=== PATIENT | male | born 1970 | race Caucasian/White ===

== ENCOUNTER 2019-11-07 10:03 | Day surgery (SDC) | payer OTHER ==
[~2019-11-07 10:03] MED LIST: BUPIVACAINE 0.25% PF 30 ML VIAL ONE; EPINEPHrine 1 MG/ML AMP ONE
[2019-11-07] MEDS ORDERED: cefTRIAXone 2 GM VIAL ONE (10:08)
[2019-11-07] MEDS ORDERED: LACTATED RINGERS 1,000 ML IV ONE (10:15)
--- NOTE | 2019-11-07 10:21 | ANESTHESIA ---
Pre-Anesthesia VS, & Labs - Diagnosis right rotator cuff tear, biceps tendonitis, AC joint arthritis - Procedure Right shoulder arthroscopy, rotator cuff repair, open distal clavicle excision, biceps tenodesis Height 6 ft 6 in Weight (kg) 104.33 kg - NPO >8 hours Home Medications and Allergies Home Medications: Ambulatory Orders Oxybutynin Chloride [Ditropan Xl] 10 mg PO 11/06/19 Sertraline [Zoloft] 50 mg PO DAILY 11/06/19 Zolpidem Tartrate [Zolpidem Tartrate ER] 12.5 mg PO 11/06/19 Oxybutynin Chloride [Ditropan Xl] 10 mg PO 11/06/19 Sertraline [Zoloft] 50 mg PO DAILY 11/06/19 Zolpidem Tartrate [Zolpidem Tartrate ER] 12.5 mg PO 11/06/19 Allergies/Adverse Reactions: Allergies Allergy/AdvReac Type Severity Reaction Status Date / Time No Known Drug Allergies Allergy Verified 11/06/19 12:38 Anes History & Medical History - Anesthetic History Anesthesia Complications: reports: No previous complications - Medical History Cardiovascular: reports: Hypertension Pulmonary: reports: None Gastrointestinal: reports: None Urinary: reports: None Musculoskeletal: reports: Other Endocrine/Autoimmune: reports: None Skin: reports: None - Surgical History Orthopedic: Arthroscopic surgery, Other Exam General: Alert Dental: WNL Mouth Opening: Greater than 4 Fingerbreadths Neck Mobility: Normal Thyromental Distance: greater than 6 cm Respiratory: Lungs clear Cardiovascular: Regular rate, Normal S1, Normal S2 Plan Anesthesia Type: General, Interscalene Block Consent for Procedure(s) Verified and Reviewed: Yes Code Status: Attempt Resuscitation ASA classification: 2-Mild systemic disease Is this case an emergency?: No
[2019-11-07] MEDS ORDERED: ROCURONIUM 50 MG/5 ML VIAL IVP ONE (11:00)
[2019-11-07] MEDS ORDERED: KETOROLAC 30 MG/ML VIAL IVP ONE (11:00)
[2019-11-07] MEDS ORDERED: MIDAZOLAM 2 MG/2 ML VIAL IVP ONE (11:00)
[2019-11-07] MEDS ORDERED: ONDANSETRON 4 MG/2 ML VIAL IVP ONE (11:00)
[2019-11-07] MEDS ORDERED: PROPOFOL 200 MG/20 ML VIAL IVP ONE (11:00)
[2019-11-07] MEDS ORDERED: fentaNYL 100 MCG/2 ML VIAL IVP ONE (11:00)
[2019-11-07] MEDS ORDERED: DEXAMETHASONE 4 MG/ML VIAL IVP ONE (11:00)
[2019-11-07] MEDS ORDERED: ACETAMINOPHEN 1,000 MG/100 ML 100 ML IV ONE (11:00)
[2019-11-07] MEDS ORDERED: LIDOCAINE-MPF 2% 5 ML VIAL IM ONE (11:00)
--- NOTE | 2019-11-07 11:28 | ANESTHESIA PROCEDURE NOTE ---
Diagnosis: shoulder pain, shoulder arthroscopy for RCR Procedure: Interscalene Block, right Consent for Procedure(s) Verified and Reviewed: Yes Height and Weight: Height 6 ft 6 in Weight (kg) 108.3 kg Vital Signs: Temp Pulse Resp BP Pulse Ox 36.8 C 64 16 137/92 H 99 11/07/19 10:16 11/07/19 10:16 11/07/19 10:16 11/07/19 10:16 11/07/19 10:16 Allergies No Known Drug Allergies Allergy (Verified 11/07/19 10:27) ASA classification: 2-Mild systemic disease Is this case an emergency?: No Anes. Monitoring and Equipment: Non-invasive BP, Pulse oximetery, Sterile prep and drape Anes. Procedure Start Time: 11:52 Anes. Procedure Stop Time: 11:57 Procedure Notes: T.O with RN, consent signed. Versed 2mg and Fentanyl 100mcg given by me, O2 2l NC on. Choraprep to site, ultrasound view fair, plexus not easily visualized but identified. Bupivicane 5% with epinephrine 100 mcg and 8mg Decadron injected in 5cc increments to total 30cc negative aspiration of blood between. Patient tolerated well, to OR. No adverse effects or parathesias.
[2019-11-07] MEDS ORDERED: BUPIVACAINE 0.25% PF 30 ML VIAL SUBQ ONE (11:41)
[2019-11-07] MEDS ORDERED: ONDANSETRON 4 MG/2 ML VIAL IVP PRN (14:46)
[2019-11-07] MEDS ORDERED: oxyCODONE 5 MG TABLET PO PRN (14:46)
--- NOTE | 2019-11-07 14:58 | OPERATIVE REPORT ---
Operative Report - Other Other Information/Narrative: Date of Surgery: 07 November 2019 Pre-Op Diagnosis: Right shoulder subscapularis tear, supraspinatus tear, biceps tendinitis, SLAP tear, AC joint arthritis Procedure: Right shoulder arthroscopic subscapularis repair, supraspinatus debridement, SLAP debridement, subacromial decompression. Open biceps tenodesis, open distal clavicle excision Postop Diagnosis: Same Primary Surgeon: Jesus Cordova Secondary Surgeon: Joshua Pryor Complications: None EBL: 50 cc IMPLANTS: Arthrex 3.9 mm knotless corkscrew. Arthrex knotless fiber tack POSTOPERATIVE PLAN: 0-2 weeks-Sling at all times. Pendulum exercises 5 times per day. 2-6 weeks-Passive and active range of motion. No external rotation beyond 15 degrees. Forward flexion to 120. Abduction to 90. No active flexion of the elbow. 6-12 weeks-Gradually increase strengthening focusing on rotator cuff and scapular stabilizers per protocol. Increase external rotation by 15 degrees/week 12 weeks -strengthening of subscapularis permissible 16 weeks and beyond-Introduce dynamic activities. EXAMINATION UNDER ANESTHESIA: ROM: Full Anterior load and shift: Normal Posterior load and shift: Grade 1 Inferior sulcus: Normal ARTHROSCOPIC FINDINGS: Rotator interval: Normal Biceps tendon & SLAP: Unstable SLAP tear extending posteriorly. Biceps tenodesis was performed Subscapularis: Tear of the leading edge which was repaired with a corkscrew Rotator Cuff: Supraspinatus showed degenerative fraying at the insertion on the articular side. 25% or less of the insertion was visible from the articular side. There was no bursal sided tear. The degenerative fraying was debrided on the articular side. Infraspinatus showed a normal insertion and bare spot HAGL: Normal Labrum: Normal Glenoid Cartilage: Normal Humeral Head Cartilage: Normal INDICATION FOR SURGERY: 49-year-old male who played high-level volleyball in college and recreational sports since then. He was doing a volleyball serve months ago and sustained an injury to his right shoulder. Nonoperative managment failed to resolve symptoms. The risks, benefits, and alternatives were discussed. Risks included pain, bleeding, infection, damage to nearby structures, lack of symptom relief, implant complications, stiffness, need for f urther surgeries, DVT, PE, stroke, and even . He signed a written consent form. PROCEDURE IN DETAIL: The patient was met in the preoperative holding on the day of the procedure. Operative extremity was signed. Consent was verified. They desired to proceed. Regional anesthesia was obtained in the preoperative area. They were brought to the operating room and surrendered to anesthesia. Once general anesthesia was obtained they were placed in the lateral decubitus position with the operative side up. An axillary roll was placed and all bony prominences were well-padded. A surgical timeout was held to confirm the patient procedure, identity, procedure, laterality, allergies, images, and antibiotics. All were in agreement we proceeded. A standard diagnostic arthroscopy was performed utilizing posterior and anterosuperior portals. The anterosuperior portal was created under direct visualization and localized with a spinal needle. The 7 mm cannula was placed anteriorly. The findings of the diagnostic arthroscopy can be found above. A biter was used to take the biceps tendon at its insertion on the superior labrum. A shaver was then used to debride unstable portions of the SLAP tear and the stump of the biceps tendon. I then proceeded to perform a subscapularis evaluation and found there to be a tear of the leading edge with slight retraction. An anterior superior lateral portal was created and the footprint of the subscapularis was prepared with a sucker shaver. All unstable and unhealthy portions of the tendon were debrided. I then placed a single knotless corkscrew centrally in the insertion site and passed a single limb through the healthy portion of the tendon. Knotless technique was used to perform an anatomic repair and the repair was tested with a probe and found to be very stable. I then closely evaluated the supraspinatus and found there to be some degenerative fraying at the insertion site but there was not any significant bare bone at the footprint. The tendon itself continued to attach just off the articular margin although there was some degeneration. Based on this I decided to not perform a takedown unless corresponding tear was seen on the bursal side. The degenerative portion of the tendon was debrided at the insertion site. SUBACROMIAL DECOMPRESSION: The instruments and cannula were then removed from the glenohumeral joint. The scope trocar was placed in the posterior portal and the acromion was felt. It was then inserted just under the acromion scraping along the bone until the CA ligament was felt. The scope trocar was then brought just lateral to the CA ligament and out the anterior incision. The cannula was then brought over the scope trocar arthroscope were inserted. The arthroscope was backed up until the shaver and arthroscope in the subacromial space. I then systemically debrided the bursa using a sucker shaver and radiofrequency ablation wand. A direct lateral incision was made and the b ursectomy and decompression was completed through the lateral incision. All soft tissue was debrided from the underside of the acromion and the posterior edge of the CA ligament was lifted. Care was taken to keep the deltoid fascia intact. The rotator cuff was then evaluated and there was no full-thickness tear. Final images were taken MINI OPEN BICEPS TENODESIS: A 5 cm incision was made near the axillary fold centered over the pectoralis major tendon. Electrocautery was used to obtain hemostasis. The fascia was opened with dissection scissors. Blunt digital dissection was used to identify the intertubercular groove just under the pectoralis major tendon. The long head of the biceps tendon was visualized within this interval. The short head of the biceps was retracted with my finger and the right angle was used to deliver the tendon of the long head of the biceps out of the wound. A patel elevator was then used to debride all synovial tissue from the intertubercular groove. A fibertack was placed high within the groove. Both limbs of the fibertack were pulled on and it was well fixed. I then whipstitched the biceps tendon starting 2 cm proximal to the musculotendinous junction down to the musculotendinous junction and back up to the same 2 cm location with a single limb of the suture tack. The other suture was placed once through the tendon at the 2 cm location. I then cut all excess tendon off. The suture limb that was passed the single time was then pulled on and this reduced the tendon nicely into the groove. The elbow was fully straightened and there was no excess tension on the repair site. I then tied 7 reverse half hitches alternating to secure the tendon in its place. The wound was then irrigated copiously. OPEN DISTAL CLAVICLE EXCISION: A 5 cm incision was made in line with the clavicle, centered over the acromioclavicular joint. Electrocautery was used to obtain hemostasis. Full-thickness skin flaps were made at the level of the fascia/joint capsule. A full-thickness longitudinal was made longitudinally to open the acromioclavicular joint. Electrocautery was used to dissect the joint capsule from the bony surfaces. 2 Homans were placed around the distal clavicle. Rongeur was used to debride the intra-articular disc. An 8 mm resection was measured and performed with a sagittal saw. Care was taken to ensure this cut was parallel to the joint surface. All sharp bony edges were rounded. A finger was placed with into the defect and the arm was adducted fully without any impingement in the joint. The joint was then irrigated copiously. A watertight capsular and fascial closure was performed with 0 Vicryl. The portal sites were then closed with 3-0 Monocryl buried. Any open incisions were closed with 2-0 Vicryl in the dermis and a running 3-0 Monocryl in the skin. Mastisol and Steri-Strips were applied. A sterile dressing and a sling was applied. A sling was placed. The patient was awakened and transferred to the recovery room.
[2019-11-07] MEDS: fentaNYL 100 MCG/2 ML VIAL ONE ×2 (15:10→15:15)
[2019-11-07] MEDS: HYDROmorphone 1 MG/ML CARPUJECT ONE ×2 (15:20→15:25)
[2019-11-07] MEDS ORDERED: oxyCODONE 5 MG TABLET ONE (15:45)
[2019-11-07 16:54] VITALS: BP 123/92
== END 2019-11-07 10:04 | disposition home or self-care (01) ==
LOC: SDS 10:03
PROVIDERS: ATTEND Orthopaedic Surgery
PROC: 0RHJ44Z Insertion of Internal Fixation Device into Right Shoulder Joint, Percutaneous Endoscopic Approach (ICD-10-PCS; 2019-11-07)
PROC: 0RBJ4ZZ Excision of Right Shoulder Joint, Percutaneous Endoscopic Approach (ICD-10-PCS; 2019-11-07)
PROC: 0LS10ZZ Reposition Right Shoulder Tendon, Open Approach (ICD-10-PCS; 2019-11-07)
PROC: 0PB90ZZ Excision of Right Clavicle, Open Approach (ICD-10-PCS; 2019-11-07)
PROC: 0LQ14ZZ Repair Right Shoulder Tendon, Percutaneous Endoscopic Approach (ICD-10-PCS; principal; 2019-11-07 11:30)
DX: S46.011A Strain of muscle(s) and tendon(s) of the rotator cuff of right shoulder, initial encounter (principal); S43.431A Superior glenoid labrum lesion of right shoulder, initial encounter; M75.21 Bicipital tendinitis, right shoulder; M19.011 Primary osteoarthritis, right shoulder; Z86.79 Personal history of other diseases of the circulatory system